=== PATIENT | male | born 1955 | race Caucasian/White ===

== ENCOUNTER → 2024-01-01 07:55 | Outpatient (REF) | payer MEDICARE, OTHER, SELFPAY ==
[2024-01-01 09:27] LABS: % Basophils 0.8 % (0-2); % Eosinophils 8.1 % (0-6); % Immature Granulocytes 0.2 % (0-0.5); % Monocytes 7.1 % (1.7-9.3); % Neutrophils 48.8 % (42.2-75.2); Absolute Eosinophils 0.4 10^3/uL (0-0.7); Absolute Lymphocytes 1.7 10^3/uL (1.2-3.4); Absolute Monocytes 0.4 10^3/uL (0.1-0.6); Absolute Neutrophils 2.4 10^3/uL (1.4-6.5); Hemoglobin 15.4 g/dL (13.0-18.0); Mean Corp Hgb Conc. 33.5 g/dL (33.0-37.0); Mean Corpuscular Hgb 30.5 pg (27.0-31.0); Mean Corpuscular Volume 91.1 fL (80.0-94.0); Mean Platelet Volume 10.5 fL (7.4-10.4); Nucleated Red Blood Cells % 0 % (-); Platelet Count 189 10^3/uL (130-400); Red Blood Cell Count 5.05 10^6/uL (4.70-6.10); Red Cell Dist. Width 12.9 % (11.5-14.5); White Blood Cell Count 4.9 10^3/uL (4.8-10.8)
[2024-01-01 10:56] LABS: Glycohemoglobin (HgbA1c) 6.4 % (4.0-5.6)
[2024-01-01 11:43] LABS: ALT (SGPT) 26 U/L (0-50); AST (SGOT) 37 U/L (17-59); Albumin 4.3 g/dl (3.5-5.0); Alkaline Phosphatase 104 U/L (38-126); Blood Urea Nitrogen 21 mg/dl (9-20); Calcium 9.5 mg/dl (8.4-10.2); Carbon Dioxide 28 mmol/L (22-30); Chloride 104 mmol/L (98-107); Glucose 93 mg/dl (70-99); HDL Cholesterol 62 mg/dl; LDL Cholesterol, Calculated 76 mg/dl; Potassium 4.6 mmol/L (3.5-5.1); Sodium 139 mmol/L (135-145); Total Bilirubin 2.1 mg/dl (0.2-1.3); Total Cholesterol 147 mg/dl (50-199); Total Protein 6.8 g/dl (6.3-8.2); Triglyceride 46 mg/dl (10-149); Very Low Density Lipoprotein 9 mg/dl (0-30); eGFR > 60.00
== END ==
LOC: REG 07:55
PROVIDERS: ATTENDING PHYSICIAN Internal Medicine
DX: E11.59 Type 2 diabetes mellitus with other circulatory complications (principal); E78.5 Hyperlipidemia, unspecified; Z00.00 Encounter for general adult medical examination without abnormal findings; Z12.5 Encounter for screening for malignant neoplasm of prostate
CPT/HCPCS: 36415; 80053; 80061; 83036; 85025; G0103

== ENCOUNTER → 2024-05-10 09:26 | Outpatient (REF) | payer MEDICARE, OTHER, SELFPAY ==
[2024-05-10 11:29] LABS: ALT (SGPT) 29 U/L (0-50); AST (SGOT) 35 U/L (17-59); Albumin 4.3 g/dl (3.5-5.0); Alkaline Phosphatase 80 U/L (38-126); Direct Bilirubin 0.2 mg/dl (0.0-0.4); HDL Cholesterol 67 mg/dl; LDL Cholesterol, Calculated 51 mg/dl; Total Bilirubin 2.4 mg/dl (0.2-1.3); Total Cholesterol 128 mg/dl (50-199); Total Protein 7.1 g/dl (6.3-8.2); Triglyceride 53 mg/dl (10-149); Very Low Density Lipoprotein 10 mg/dl (0-30)
== END ==
LOC: REG 09:26
PROVIDERS: ATTENDING PHYSICIAN Internal Medicine Cardiovascular Disease
DX: I25.10 Atherosclerotic heart disease of native coronary artery without angina pectoris (principal); E78.00 Pure hypercholesterolemia, unspecified
CPT/HCPCS: 36415; 80061; 80076

== ENCOUNTER → 2024-07-04 10:43 | Outpatient (REF) | payer MEDICARE, OTHER, SELFPAY ==
[2024-07-04 11:39] LABS: ALT (SGPT) 24 U/L (0-50); AST (SGOT) 29 U/L (17-59); Albumin 4.5 g/dl (3.5-5.0); Alkaline Phosphatase 92 U/L (38-126); Direct Bilirubin 0.2 mg/dl (0.0-0.4); Glucose 99 mg/dl (70-99); HDL Cholesterol 58 mg/dl; LDL Cholesterol, Calculated 46 mg/dl; Total Bilirubin 2.2 mg/dl (0.2-1.3); Total Cholesterol 113 mg/dl (50-199); Total Protein 6.8 g/dl (6.3-8.2); Triglyceride 48 mg/dl (10-149); Very Low Density Lipoprotein 9 mg/dl (0-30)
[2024-07-04 13:07] LABS: Glycohemoglobin (HgbA1c) 6.5 % (4.0-5.6)
== END ==
LOC: REG 10:43
PROVIDERS: ATTENDING PHYSICIAN Internal Medicine
DX: E11.59 Type 2 diabetes mellitus with other circulatory complications (principal); E78.5 Hyperlipidemia, unspecified
CPT/HCPCS: 36415; 80061; 80076; 82947; 83036

== ENCOUNTER → 2025-01-03 08:29 | Outpatient (REF) | payer MEDICARE, OTHER, SELFPAY ==
[2025-01-03 09:32] LABS: Hematocrit 42.4 % (39.0-52.0); Hemoglobin 13.9 g/dL (13.0-18.0); Mean Corp Hgb Conc. 32.8 g/dL (33.0-37.0); Mean Corpuscular Volume 93.8 fL (80.0-94.0); Platelet Count 141 10^3/uL (130-400); Red Cell Dist. Width 12.8 % (11.5-14.5)
[2025-01-03 09:57] LABS: Nucleated Red Blood Cells % 0 % (-)
[2025-01-03 10:15] LABS: Glycohemoglobin (HgbA1c) 6.3 % (4.0-5.6)
[2025-01-03 14:02] LABS: ALT (SGPT) 28 U/L (0-50); AST (SGOT) 32 U/L (17-59); Albumin 4.1 g/dl (3.5-5.0); Alkaline Phosphatase 92 U/L (38-126); Blood Urea Nitrogen 16 mg/dl (9-20); Calcium 9.1 mg/dl (8.4-10.2); Carbon Dioxide 28 mmol/L (22-30); Chloride 105 mmol/L (98-107); Glucose 101 mg/dl (70-99); HDL Cholesterol 44 mg/dl; Potassium 4.2 mmol/L (3.5-5.1); Sodium 139 mmol/L (135-145); Total Protein 6.9 g/dl (6.3-8.2); Very Low Density Lipoprotein 12 mg/dl (0-30); eGFR > 60.00
[2025-01-03 14:17] LABS: LDL Cholesterol, Calculated 61 mg/dl
[2025-01-03 14:41] LABS: PSA, Total - Screen 1.49 ng/ml (0.0-4.0)
== END ==
LOC: REG 08:29
PROVIDERS: ATTENDING PHYSICIAN Internal Medicine
DX: E11.59 Type 2 diabetes mellitus with other circulatory complications (principal); E78.5 Hyperlipidemia, unspecified; Z00.01 Encounter for general adult medical examination with abnormal findings; Z12.5 Encounter for screening for malignant neoplasm of prostate
CPT/HCPCS: 36415; 80053; 80061; 83036; 85025; G0103

== ENCOUNTER 2025-04-22 16:05 | Emergency (ER) | payer MEDICARE, OTHER, SELFPAY ==
[2025-04-22 16:11] VITALS: BP 98/84
[2025-04-22 16:51] VITALS: BP 124/73
[2025-04-22 16:51] LABS: Urine Character Clear (Clear)
[2025-04-22 16:53] LABS: Hematocrit 45.2 % (39.0-52.0); Hemoglobin 15.0 g/dL (13.0-18.0); Mean Corp Hgb Conc. 33.2 g/dL (33.0-37.0); Mean Corpuscular Volume 89.5 fL (80.0-94.0); Nucleated Red Blood Cells % 0 % (-); Platelet Count 198 10^3/uL (130-400); Red Cell Dist. Width 13.0 % (11.5-14.5)
[2025-04-22 16:57] VITALS: BMI 23.6
[2025-04-22 16:58] LABS: Urine Red Blood Cell 50-60 /HPF (0-2); Urine Squamous Cell 0-2 /LPF (Few); Urine White Cell 0-2 /HPF (0-5)
[2025-04-22 17:00] VITALS: BP 115/71
--- NOTE | 2025-04-22 17:02 | ED.GENMED ---
History of Present Illness
General
Chief Complaint: Flank Pain
Source: patient
Exam Limitations: none
Time Seen by Provider: 04/22/25 16:36
Nursing documentation reviewed up to this point in time: agreed with
History of Present Illness
History of Present Illness:
69-year-old male w h/o kidney stones presenting with left flank pain that began approximately two to three hours prior to arrival. The pain radiated to the groin and hip and initially registered as severe, but has since decreased to a 2 or 3/10. The
patient reports being at rest, sitting on the couch, when the pain began. He experienced significant relief after urinating about 20 minutes ago. The patient has a history of kidney stones and describes the current pain as similar to his previous
experiences. He also reported experiencing one episode of vomiting. The patient denies chest pain, difficulty breathing, diarrhea, or constipation. He reported difficulty having a bowel movement during the pain episode, but has managed to have BM
since arrival. Denies fever/chills.
Past History
Past History
ED Past Medical History: CAD, Hypercholesterolemia, DC (Lateral wall STEMI March 2017) and Other (Hyperlipidemia, kidney stone)
ED Past Surgical History: Cardiac and Urological
Social History
Tobacco: Non-smoker
Alcohol: None
Drug: None
Personal:
Living: with family
Employment: Employed
Family History
Family History: Other (Noncontributory)
Review of Systems
Review of Systems
Allergies reviewed?: Yes
All Other Systems: ROS reviewed and negative except as documented in HPI and ROS
Phy Exam
Physical Exam
Physical Exam:
GENERAL: No acute distress. A&Ox3.
CONSTITUTIONAL: Afebrile.
EYES: clear, conjunctivae normal
ENMT: moist mucus membranes, Pharynx nl
RESPIRATORY: Regular respirations, nonlabored, lungs clear.
CARDIOVASCULAR: Regular rate and rhythm, no murmurs, no rubs.
GI: Soft, nontender, normal BS
MUSCULOSKELETAL: Moves with ease. Well perfused.
SKIN: Warm, dry, pink
PSYCH: Normal mood and affect. Well kept, interactive and appropriate
NEUROLOGIC: Awake, alert and oriented. No focal neurological deficits
Course
Orders/Labs/Results
Orders:
Orders
04/22/25 16:34
Complete Blood Count/With Diff Urgent
Comprehensive Metabolic Panel Urgent
Lipase Urgent
Urinalysis Reflex To Culture Urgent
Date Specimen was Collected: 04/22/25
Time Specimen was Collected: 16:15
Urine Microscopic Reflex Cult Urgent
Urine Culture Urgent
LICO Source: U
Specimen Description:
Date Specimen was Collected: 04/22/25
Time Specimen was Collected: 16:15
04/22/25 17:04
CT Abd/pel Without Iv Or Oral Urgent
Comment:
Reason For Exam: L flank and groin pain
04/22/25 18:14
Tamsulosin [Flomax] 0.4 mg PO NOW STA
Abnormal Lab Results
04/22/25
16:34
BUN 21 H mg/dl
(9-20)
Glucose 108 H mg/dl
(70-99)
Total Bilirubin 3.3 H mg/dl
(0.2-1.3)
Ur Occult Blood Reflex 4+ A
(Negative)
Urine RBC 50-60 A /HPF
(0-2)
Urine Bacteria (Reflex) Moderate A
(Negative)
Urine Albumin (Reflex) 1+ A
(Neg - Trace)
04/22/25 16:34
04/22/25 16:34
Vital Signs
Initial and Last Documented VS:
Initial Vital Signs
Temp Pulse Resp BP Pulse Ox
97.4 F 76 18 98/84 100
04/22/25 16:11 04/22/25 16:11 04/22/25 16:11 04/22/25 16:11 04/22/25 16:11
Last Documented Vital Signs
Temp Pulse Resp BP Pulse Ox
97.4 F 74 18 117/68 98
04/22/25 16:11 04/22/25 18:45 04/22/25 18:45 04/22/25 18:20 04/22/25 18:45
MDM/Problems Addressed
Differential Diagnosis Includes:
Kidney stone, pyelonephritis, muscle strain
MDM/Problems Addressed:
69-year-old male w h/o kidney stones presenting with left flank pain that began approximately two to three hours prior to arrival. The pain radiated to the groin and hip and initially registered as severe, but has since decreased to a 2 or 3/10. The
patient reports being at rest, sitting on the couch, when the pain began. He experienced significant relief after urinating about 20 minutes ago. The patient has a history of kidney stones and describes the current pain as similar to his previous
experiences. He also reported experiencing one episode of vomiting. The patient denies chest pain, difficulty breathing, diarrhea, or constipation. He reported difficulty having a bowel movement during the pain episode, but has managed to have BM
since arrival. Denies fever/chills.
CBC normal
CMP: Unremarkable save for Bilirubin 3.3 (has Gilbert's Syndrome)
U/A: Blood, no sign of infection
18:00
CT abd/pelvis plain: Radiology report: IMPRESSION:
Approximate 0.3 cm calculus at the distal left ureterovesical junction with minimal left hydroureteronephrosis.
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 Distal abdominal aorta measured 2.4 cm on relative remote prior CT.
Small to moderate size hiatal hernia again seen.
*Pulse Oximetry
SaO2: 99
Oxygen Mode of Delivery: Room air
Patient hypoxic: not evaluated
*Critical Care Note
Total Time (30-74mins, 75-104mins- exclusive of procedures): Not Applicable
ED Attending Note
-
Portions of this chart may have been created with voice recognition software.� Occasional wrong word or��sound alike� substitutions may have occurred due to the inherent limitations of voice recognition software.
Discharge Plan
Departure
Patient Disposition: Home (Routine Discharge)
Date of Disposition: 04/22/25
Time of Disposition: 18:25
Patient with high blood pressure during this ER visit?: No
Condition: Good
Discharge Problem:
Kidney stone
Instructions: Kidney Stones (DC), How to Strain Your Urine
Prescriptions:
New
tamsulosin 0.4 mg capsule
0.4 mg PO DAILY Qty: 4 0RF
hydrocodone-acetaminophen 5-325 mg tablet
1 tab PO Q6H PRN (Reason: Pain) Qty: 6 0RF
No Action
aspirin 81 MG tablet,chewable
81 mg PO DAILY
atorvastatin 80 MG tablet
80 mg PO QPM Qty: 30 3RF
tamsulosin 0.4 MG capsule
0.4 mg PO HS
oxybutynin chloride 5 MG tablet
5 mg PO BIDPRN PRN (Reason: bladder symtpms)
amoxicillin 500 MG capsule
500 mg PO Q8H Qty: 23 0RF
oxycodone 5 MG tablet
5 mg PO Q4HPRN PRN (Reason: breakthrough/severe pain) Qty: 10 0RF
Referrals:
Rambo Riley MD [Active, Urology] - Call in 1-3 days for appt
Ector Chavira MD [Family Provider, Internal Medicine]
Activity Restrictions/Additional Instructions:
As we discussed, I sent a prescription to your pharmacy for Flomax to take daily for next 4 days (you were given a dose here).
Also, take Ibuprofen 600 mg for mild to moderate pain and use Vicodin if needed for worse pain (I sent a prescription to your pharmacy for Vicodin #6 pills).
Interventions
Interventions:
*Risk Screen - Suicide Last Done: 04/22/25 16:11
*General Assessment Last Done: 04/22/25 16:11
*Neglect/Abuse Screening Last Done: 04/22/25 18:50
*ED- Fall Risk Assessment Last Done: 04/22/25 18:50
*ED COVID-19 Vaccine History Last Done: 04/22/25 16:11
*ED Influenza Vaccine History Last Done: 04/22/25 16:11
*Nursing Disposition Last Done: 04/22/25 18:50
CR-Fhavod-Qfamstypwq Assessment Last Done: 04/22/25 16:52
ED-Male Genitourinary Assessment Last Done: 04/22/25 16:52
Discharge Date and Time
Discharge Date/Time: 04/22/25 19:02
Print Language: LATVIAN
[2025-04-22 17:09] LABS: ALT (SGPT) 24 U/L (0-50); AST (SGOT) 31 U/L (17-59); Albumin 4.6 g/dl (3.5-5.0); Alkaline Phosphatase 90 U/L (38-126); Blood Urea Nitrogen 21 mg/dl (9-20); Calcium 10.0 mg/dl (8.4-10.2); Carbon Dioxide 29 mmol/L (22-30); Chloride 103 mmol/L (98-107); Estimated Creatinine Clearance 69 ml/min; Glucose 108 mg/dl (70-99); Lipase 287 U/L (23-300); Potassium 4.2 mmol/L (3.5-5.1); Sodium 137 mmol/L (135-145); Total Protein 7.7 g/dl (6.3-8.2); eGFR > 60.00
[2025-04-22 18:20] VITALS: BP 117/68
[2025-04-22] MEDS: FLOMAX 0.4 MG PO (18:53)
== END 2025-04-22 19:02 | disposition home or self-care (01) ==
LOC: EMR 16:05
PROVIDERS: Student in an Organized Health Care Education/Training Program; EMERGENCY PHYSICIAN Student in an Organized Health Care Education/Training Program; FAMILY PHYSICIAN Internal Medicine
DX: N13.2 Hydronephrosis with renal and ureteral calculous obstruction (principal); I25.10 Atherosclerotic heart disease of native coronary artery without angina pectoris; I71.43 Infrarenal abdominal aortic aneurysm, without rupture; E78.00 Pure hypercholesterolemia, unspecified; I25.2 Old myocardial infarction; E80.4 Gilbert syndrome; K44.9 Diaphragmatic hernia without obstruction or gangrene; Z87.442 Personal history of urinary calculi; Z79.82 Long term (current) use of aspirin
CPT/HCPCS: 99284; 74176; 80053; 81003; 81015; 83690; 85025; 87086